=== PATIENT | female | born 1995 | race Caucasian/White ===

== ENCOUNTER 2017-08-18 19:12 | Emergency (ER) | payer MEDICAID ==
--- NOTE | 2017-08-18 19:42 | ED Physician Chart ---
ED Chief Complaint/HPI - Patient Information Date Seen:: 08/18/17 Time Seen:: 19:26 Chief Complaint:: Frontal headache for one day. History of Present Illness:: Brought in by private auto for the above reason. ANDERSON is characterized as intermittent pressure like. No fever. No N/V. No visual changes in terms of blurry vision or diplopia. Pt has had nasal congestion with yellow greenish nasal discharge. Pt has not had any analgesic today. Allergies:: Allergies Allergy/AdvReac Type Severity Reaction Status Date / Time No Known Allergies Allergy Verified 08/18/17 19:27 Vitals:: Vital Signs - 8 hr 08/18/17 19:20 Temp 97.8 F HR 68 RR 18 BP 126/74 O2 Sat % 98 Historian:: Patient Family MD/PCP:: unknown LMP:: 08/16/17 Review:: Nurse's Note Reviewed ED Review of Systems - Review of Systems General/Constitutional: No fever, No chills, No weight loss, No weakness, No edema, No loss of appetite Skin: No skin lesions, No rash, No bruising Head: Headache, No light-headedness Eyes: No loss of vision, No pain, No diplopia ENT: No earache, Nasal drainage, No sore throat Neck: No neck pain, No swelling, No thyromegaly, No stiffness, No mass noted Cardio Vascular: No chest pain, No palpitations, No edema Pulmonary: No SOB, Cough (occasional cough), No wheezing GI: No nausea, No vomiting, No diarrhea, No pain G/U: No dysuria, No frequency, No hematuria [employer]: No vaginal discharge, No abnormal vaginal bleed Musculoskeletal: No bone or joint pain, No muscle pain Endocrine: No polyuria, No polydipsia Psychiatric: No prior psych history Hematopoietic: No bruising, No lymphadenopathy Allergic/Immuno: No urticaria, No angioedema Neurological: No syncope, No focal symptoms, No weakness, No paresthesia, Headache, No seizure, No dizziness, No confusion, No vertigo ED Past Medical History - Past Medical History Past Medical History: No significant medical hx Family History: Diabetes Melitus (mother) Social History: Non Smoker, No Alcohol, No Drug Use, Single, Other (lives with her mother.) Employment:: [employer] Surgical History: Appendectomy (at age 11) Psychiatricy History: None Medication: Reviewed Family Medical History - Family Member Mother Ethnicity: Living Status: Still Living Hx Family Diabetes: Yes ED Physical Exam - Physical Examination General/Constitutional: Awake, Well-developed, well-nourished, Alert, No distress, GCS 15, Non-toxic appearing, Ambulatory Head: Atraumatic Other Head comments:: Mild tenderness to percussion at frontal sinus regions. Eyes: Lids, conjuctiva normal, PERRL, EOMI Skin: Nl inspection, No rash, No skin lesions, No ecchymosis, Well hydrated, No lymphadenopathy ENMT: Lips, teeth, gums nl, Oropharynx nl, Tonsils nl Other ENMT comments:: There is trace light yellow nasal exudate and postnasal drip. No foreign body noticed in nasal passages. Neck: Nontender, Full ROM w/o pain, No nuchal rigidity, No mass, No stridor Respiratory: Nl effort/Exclusion, Clear to Auscultation, No Wheeze/Rhonchi/Rales Cardio Vascular: RRR, No murmur, gallop, rubs Extremities: No tenderness or effusion, No edema Neuro/Psych: Alert/oriented (oriented x 3), Judgement/insight normal, Mood normal, Normal gait, No focal deficits ED Septic Shock - . Is Septic Shock (SBP<90, OR Lactate>4 mmol\L) present?: No - <6hrs of presentation: Vital Signs: Vital Signs - 8 hr 08/18/17 19:20 Temp 97.8 F HR 68 RR 18 BP 126/74 O2 Sat % 98 ED Reassessment (Disposition) - Reassessment Reassessment:: 1953 Pt remains comfortable. Pt mentions that she lost her R nose ring metal cap that was in her R nasal passage yesterday. I discuss with pt at length. There is no foreign body found in R nasal passage on exam today. Given the size and the weight of the metal ring cap. It is most likely that it dropped out of the nasal passage outside of her nose. Pt at this time does not want any imaging study to search for the object. She requests to go home now and does not want further observation/management in hospital. Aftercare instructions have been given. Reassessment Condition:: Improved - Diagnosis Diagnosis:: Acute frontal sinusitis - Aftercare/Follow up Instructions Aftercare/Follow-Up Instructions:: Refer to Discharge Instructions Notes:: Push oral fluid. May use Sudafed as directed as needed. Motrin 200 mg tab 3 tabs po q8h prn pain. F/U with Dr. Samano or PCP of pt's choice in one day for recheck. Return to ER immediately if condition worsens or if any further questions/problems. Medication Prescribed:: Bactrim DS one tab po q12h for 14 days. D-28 R-0 - Patient Disposition Discharge/Transfer:: Home Time:: 21:15 Condition at Disposition:: Stable, Improved ED Discharge Plan - Patient Disposition Admit/Discharge/Transfer: PT DISCHARGED HOME Condition at Disposition: Stable Instructions: Sinusitis, Tilp-ce-[id number] Additional Instructions: FOLLOW UP WITH PMD TOMORROW, COMPLY WITH PRESCRIBED MEDICATION, GO BACK TO EMERGENCY ROOM IF SYMPTOMS WORSEN.
== END 2017-08-18 20:40 | disposition home or self-care (01) ==
LOC: ER 19:12
DX: J01.10 Acute frontal sinusitis, unspecified (principal); Z90.49 Acquired absence of other specified parts of digestive tract
CPT/HCPCS: Z7502